=== PATIENT | female | born 1950 | race African-American/Black ===

== ENCOUNTER → 2020-12-24 | Outpatient (CLI) | payer MEDICARE, OTHER ==
[~2020-12-24] MED LIST: AMLO5TAB4 PO; ASCO500C PO; ASPI-630 PO; ATOR40TA59 PO; METO-239 PO; POTA10TA5 PO; TRAM50TA PO; VITA25006 PO; [UNRECOGNIZED DRUG - CODE] PO
== END ==
LOC: LAB 08:30
PROVIDERS: ATTEND Nurse Anesthetist, Certified Registered
DX: Z01.812 Encounter for preprocedural laboratory examination (principal); Z20.822 Contact with and (suspected) exposure to COVID-19
CPT/HCPCS: U0003

== ENCOUNTER → 2020-12-28 | Day surgery (SDC) | payer MEDICARE, OTHER ==
[~2020-12-28] MED LIST changes: +IPRATRPIUM/ALBUTEROL 0.5/2.5MG 3 ML NEBU. NEB PRN; +IV RINGERS SOLUTION,LACTATED 1,000 ML IV SCH; +LIDOCAINE 2% PF 5 ML VIAL. ONE; +MIDAZOLAM HCL PF 2 MG/2 ML VIAL. IV ONE; +ONDANSETRON PF 4 MG/2 ML VIAL. IV PRN; +PROPOFOL 10,000 MCG/ML (20ML) VIAL IV ONE
[2020-12-28 10:15] VITALS: BP 156/89
== END | disposition home or self-care (01) ==
LOC: SURG 08:05
PROVIDERS: ATTEND Internal Medicine Gastroenterology
DX: R19.5 Other fecal abnormalities (principal); K64.8 Other hemorrhoids; I10 Essential (primary) hypertension; M19.90 Unspecified osteoarthritis, unspecified site; Z79.899 Other long term (current) drug therapy; Z79.82 Long term (current) use of aspirin; Z15.09 Genetic susceptibility to other malignant neoplasm
CPT/HCPCS: 45378; J2001; J2704; G0105